=== PATIENT | female | born 1940 | race Two or more races ===

== ENCOUNTER 2019-12-01 17:06 | Emergency (ER) | payer OTHER ==
[~2019-12-01] VITALS: Ht 165.1 cm; Wt 68.0 kg
== END 2019-12-01 19:33 | disposition home or self-care (01) ==
LOC: ER 17:06
DX: R53.1 Weakness (principal); M54.89 Other dorsalgia

== ENCOUNTER 2021-01-25 08:44 | Outpatient (CLI) | payer OTHER | END 2021-01-25 08:51 | disposition home or self-care (01) | LOC: RX STUDY 08:44 | PROVIDERS: ATTEND Internal Medicine Hematology & Oncology | DX: K21.9 Gastro-esophageal reflux disease without esophagitis (principal); K56.600 Partial intestinal obstruction, unspecified as to cause ==